=== PATIENT | male | born 1990 | race African-American/Black ===

== ENCOUNTER 2022-08-27 18:53 | Emergency (ER) | payer MEDICAID, OTHER ==
[~2022-08-27] VITALS: Ht 180.3 cm; Wt 86.0 kg
[2022-08-27 18:55] VITALS: BP 142/79
== END 2022-08-27 23:00 | disposition left against medical advice (07) ==
LOC: M ED 18:53
DX: Z53.21 Procedure and treatment not carried out due to patient leaving prior to being seen by health care provider (principal)

== ENCOUNTER 2023-04-10 16:19 | Emergency (ER) | payer OTHER ==
[~2023-04-10] VITALS: Ht 180.3 cm; Wt 82.4 kg
[2023-04-10 18:53] LABS: GC DNA AMPLIFICATION NEGATIVE (NEGATIVE)
[2023-04-10] MEDS ORDERED: TERB1CRE2 TOP (19:10)
[2023-04-10 19:22] VITALS: BP 132/77
== END 2023-04-10 19:26 | disposition home or self-care (01) ==
LOC: M ED 16:19
DX: B35.3 Tinea pedis (principal); M79.672 Pain in left foot

== ENCOUNTER 2024-04-28 21:22 | Emergency (ER) | payer OTHER, SELFPAY ==
[~2024-04-28] VITALS: Ht 177.8 cm; Wt 82.3 kg
[~2024-04-28 21:22] MED LIST: TERB1CRE2 TOP
[2024-04-28 22:15] LABS: HEMATOCRIT 41.7 % (42.0-52.0); HEMOGLOBIN 14.2 g/dl (13.5-17.5); MEAN CORPUSCULAR HEMOGLOBIN 32.6 pg (27.0-33.0); MEAN CORPUSCULAR HGB CONC 34.1 g/dl (32.0-36.5); MEAN CORPUSCULAR VOLUME 95.9 fl (80.0-96.0); PLATELET COUNT, AUTOMATED 267 10^3/uL (150-450); RED BLOOD COUNT 4.35 10^6/uL (4.30-6.10); WHITE BLOOD COUNT 7.2 10^3/uL (4.0-10.0)
[2024-04-28 22:37] LABS: ETHYL ALCOHOL (ETHANOL) 0.102 % (0.000-0.010)
[2024-04-28] MEDS: BOOSTRIX VACCINE (TETANUS/DIPHTH/ACEL. PERTUSSIS) 0.5ML SYR IM ONE (22:37)
[2024-04-28 22:39] LABS: ALBUMIN 3.7 G/DL (3.2-5.2); ALKALINE PHOSPHATASE 70 U/L (46-116); ALT/SGPT 11 U/L (7.0-40); AST/SGOT 12 U/L (<34); BILIRUBIN,DIRECT < 0.1 MG/DL (<0.4); BILIRUBIN,TOTAL 0.3 MG/DL (0.3-1.2); BLOOD UREA NITROGEN 11 MG/DL (9-23); CARBON DIOXIDE LEVEL 26 MMOL/L (20-31); CHLORIDE LEVEL 109 MMOL/L (98-107); CREATININE FOR GFR 0.84 MG/DL (0.70-1.30); GLOMERULAR FILTRATION RATE > 60.0 (>60); GLUCOSE, FASTING 96 MG/DL (60-100); POTASSIUM SERUM 4.3 MMOL/L (3.5-5.1); SALICYLATE LEVEL < 3.0 MG/DL (<30); SODIUM LEVEL 141 MMOL/L (136-145); TOTAL PROTEIN 7.1 G/DL (5.7-8.2)
[2024-04-28 22:41] LABS: THYROID STIMULATING HORMONE 0.941 uIU/ML (0.55-4.78)
[2024-04-29] MEDS ORDERED: HOME MED LIST COMPLETE! XX SCH (01:45)
[2024-04-29 01:46] LABS: BARBITURATES URINE NEGATIVE (NEGATIVE); BENZODIAZEPINES URINE NEGATIVE (NEGATIVE); COCAINE METABOLITE URINE NEGATIVE (NEGATIVE); METHADONE URINE NEGATIVE (NEGATIVE); OPIATES URINE NEGATIVE (NEGATIVE); PHENCYCLIDINE URINE NEGATIVE (NEGATIVE)
[2024-04-29 02:14] LABS: AMPHETAMINES LEVEL URINE POSITIVE (NEGATIVE); CANNABINOIDS URINE POSITIVE (NEGATIVE)
[2024-04-29 07:48] VITALS: BP 128/70; TEMP 98; O2SAT 100
== END 2024-04-29 07:51 | disposition home or self-care (01) ==
LOC: M ED 21:22
DX: F91.9 Conduct disorder, unspecified (principal); F17.210 Nicotine dependence, cigarettes, uncomplicated; F12.10 Cannabis abuse, uncomplicated; F10.10 Alcohol abuse, uncomplicated; Z23 Encounter for immunization